=== PATIENT | female | born 1950 | race Caucasian/White ===

== ENCOUNTER 2019-11-27 11:46 | Outpatient (REF) | payer MEDICARE, SELFPAY ==
[2019-11-27 12:38] LABS: MANUAL DIFF FLAG NO
[2019-11-27 12:44] LABS: Basophils Absolute Auto 0.1 X10*3/uL (0.0-0.2); Basophils Percent Auto 1.2 % (0-2); Eosinophils Absolute Auto 0.2 X10*3/uL (0.0-0.4); Eosinophils Percent Auto 2.4 % (0-4); Hematocrit 35.5 % (37-47); Hemoglobin 11.5 g/dl (12.0-16.0); Imm Gran Abs Auto 0.04 X10*3/uL (0.00-0.03); Imm Gran Pct Auto 0.4 % (0.0-0.4); Lymphocytes Absolute Auto 1.7 X10*3/uL (1.2-4.9); Lymphocytes Percent Auto 18.7 % (20-40); Mean Corpuscular HGB Conc 32.4 g/dl (31.0-35.0); Mean Corpuscular Hemoglobin 27.3 pg (27.0-33.0); Mean Corpuscular Volume 84.3 fL (80-98); Mean Platelet Volume 11.4 fL (9.4-12.3); Monocytes Absolute Auto 0.6 X10*3/uL (0.1-1.2); Monocytes Percent Auto 6.8 % (2-11); Neutrophils Absolute Auto 6.3 X10*3/uL (2.0-8.3); Neutrophils Percent Auto 70.5 % (45-73); Platelet Count 251 X10*3/uL (160-400); Red Blood Count 4.21 X10*6/uL (4.20-5.50)
[2019-11-27 13:19] LABS: Albumin Level 4.2 g/dL (3.5-5.0); Anion Gap 16 (12-20); Blood Urea Nitrogen 23 mg/dL (9-16); Calcium 9.9 mg/dL (8.4-10.2); Carbon Dioxide 27 mmol/L (22-29); Chloride 98 mmol/L (96-108); Estimated Glomerular Filt Rate 41; Magnesium 1.8 mg/dL (1.6-2.6); Phosphorus 4.4 mg/dL (2.7-4.5); Potassium 4.9 mmol/l (3.3-5.1); Sodium 136 mmol/L (135-145); Uric Acid 4.7 mg/dL (2.4-5.7)
[2019-11-27 13:38] LABS: Renal w Reflex Lab Use Only Order verified
[2019-11-27 14:25] LABS: Osmolality, Serum 300 mosm/kg (281-305)
== END 2019-11-27 11:47 | disposition home or self-care (01) ==
LOC: HO.LAB 11:46
PROVIDERS: PCP Nurse Practitioner Family; Visit Provider Internal Medicine Nephrology
DX: E11.9 Type 2 diabetes mellitus without complications (principal); I10 Essential (primary) hypertension; E78.5 Hyperlipidemia, unspecified; E87.5 Hyperkalemia; E87.1 Hypo-osmolality and hyponatremia
CPT/HCPCS: 36415; 80051; 82040; 82310; 82565; 83735; 83930; 84100; 84520; 84550; 85025

== ENCOUNTER 2019-11-28 11:00 | Outpatient (REF) | payer MEDICARE, SELFPAY ==
[2019-11-29 13:37] LABS: Glucose Urine UA 250 MG/DL (NEG); Leukocyte Esterase Urine 2+ (NEG); Nitrite Urine NEG (NEG); PH 5.5 (5.0-8.0); Specific Gravity - Urine 1.015 (1.005-1.025); UACC Culture Trigger YES; Urine Blood TRACE (NEG); Urine Ketones NEG (NEG); Urine Protein TRACE MG/DL (NEG-TRACE)
[2019-11-29 13:52] LABS: Appearance Urine HAZY; Color Urine YELLOW
[2019-11-29 14:03] LABS: Bacteria Urine 2+ /LPF; Squamous Epithelial Cell Urine 1+ /LPF
[2019-11-29 14:10] LABS: Creatinine Urine 32.85 mg/dL; Creatinine Urine 34.12 mg/dL; Microalbum/Creatinine Ratio Ur 448.4 ug/mg cr; Protein/Creatinine Ratio, Ur 0.85 (<0.2); Total Protein Urine Random 28 mg/dL (<12)
[2019-11-29 14:11] LABS: Osmolality Urine 332 mosm/kg (373-1093)
[2019-11-29 15:27] LABS: Renal w Reflex-LAB USE ONLY Order Verified
== END 2019-11-28 11:01 | disposition home or self-care (01) ==
LOC: HO.LNP 11:00
PROVIDERS: Visit Provider Internal Medicine Nephrology
DX: E11.9 Type 2 diabetes mellitus without complications (principal); I10 Essential (primary) hypertension; E78.5 Hyperlipidemia, unspecified; E87.5 Hyperkalemia; E87.1 Hypo-osmolality and hyponatremia
CPT/HCPCS: 81001; 81003; 82043; 83935; 84156; 84300; 87086; 87088; 87186

== ENCOUNTER → 2019-11-29 12:07 | Outpatient (BNVA) | payer MEDICARE, SELFPAY | PROVIDERS: PCP Nurse Practitioner Family; Referring Provider Nurse Practitioner Family; Visit Provider Internal Medicine | DX: E11.22 Type 2 diabetes mellitus with diabetic chronic kidney disease (principal); I12.9 Hypertensive chronic kidney disease with stage 1 through stage 4 chronic kidney disease, or unspecified chronic kidney disease; N18.9 Chronic kidney disease, unspecified; Z79.4 Long term (current) use of insulin; E78.5 Hyperlipidemia, unspecified; R79.89 Other specified abnormal findings of blood chemistry; E55.9 Vitamin D deficiency, unspecified | CPT/HCPCS: 82947; 99214 ==

== ENCOUNTER 2022-01-10 14:31 | Outpatient (REF) | payer MEDICARE, SELFPAY ==
[2022-01-10 15:48] LABS: Appearance Urine Turbid; Color Urine Yellow; Glucose Urine UA 500 mg/dL (Negative); Leukocyte Esterase Urine Large (3+) (Negative); Nitrite Urine Negative (Negative); PH 8.5 (5.0-9.0); Specific Gravity - Urine 1.015 (1.005-1.025); UMIC TRIGGER UA YES; UMIC TRIGGER UACC YES; Urine Blood Moderate (2+) (Negative); Urine Ketones Negative (Negative); Urine Protein 100 (2+) mg/dL (Neg-Trace)
[2022-01-10 16:07] LABS: Bacteria Urine 3+ (None Seen); Hyaline Casts Urine 0-2 /LPF (0-2); Squamous Epithelial Cell Urine 0-2 /HPF (0-2); UACC Culture Trigger YES; WBC Urine >50 /HPF (0-5)
[2022-01-10 16:08] LABS: WBC Clumps Urine Present
== END 2022-01-10 14:32 | disposition home or self-care (01) ==
LOC: HO.HMGCLNP 14:31
PROVIDERS: Visit Provider Internal Medicine
DX: T80.212D Local infection due to central venous catheter, subsequent encounter (principal)
CPT/HCPCS: 81001; 87086